=== PATIENT | male | born 1980 | race Caucasian/White ===

== ENCOUNTER 2024-04-11 10:40 | Emergency (ER) | payer MEDICAID ==
[~2024-04-11] VITALS: Ht 160 cm; Wt 70.3 kg
[2024-04-11] MEDS ORDERED: CLINDAMYCIN 600 MG in D5W 50 ML IV ONE (11:00)
[2024-04-11 11:08] VITALS: BP_SYST 153; PULSE 106; RESP 17; TEMP 97.5; O2SAT 98
[2024-04-11 11:36] LABS: BASOPHILS % (AUTO) 0.3 % (0.0-2.0); EOSINOPHILS # (AUTO) 0.2 K/uL (0.0-0.4); EOSINOPHILS % (AUTO) 1.7 % (0.0-4.0); HEMATOCRIT 48.2 % (36-54); HEMOGLOBIN 16.7 g/dL (14.0-18.0); LYMPHOCYTES # (AUTO) 2.4 K/uL (1.0-5.5); LYMPHOCYTES % (AUTO) 22.6 % (20.5-51.5); MEAN CORPUSCULAR HEMOGLOBIN 33 pg (27-31); MEAN CORPUSCULAR HGB CONC 35 % (32-36); MEAN CORPUSCULAR VOLUME 94 fL (79.0-98.0); MONOCYTES % (AUTO) 9.3 % (1.7-9.3); NEUTROPHILS # (AUTO) 6.9 K/uL (1.8-7.7); NEUTROPHILS % (AUTO) 66.1 % (40.0-70.0); PLATELET COUNT (AUTO) 224 K/uL (130-430); RED BLOOD CELL COUNT(AUTO) 5.12 MIL/uL (4.2-6.2); RED CELL DISTRIBUTION WIDTH 13.1 % (9.0-15.0); WHITE BLOOD COUNT (AUTO) 10.5 K/uL (4.8-10.8)
[2024-04-11] MEDS: CLINDAMYCIN HCL 150 MG CAPSULE PO ONE (11:47)
[2024-04-11 11:55] LABS: INR 1.1 (0.80-1.20); PROTHROMBIN TIME 11.5 SECS (9.5-12.5)
[2024-04-11 12:24] LABS: CALCIUM 8.4 mg/dL (8.4-11.0); CREATININE 1.03 mg/dL (0.55-1.30); POTASSIUM 3.8 mmol/L (3.5-5.1)
[2024-04-11] MEDS ORDERED: CLIN-142 PO (12:39)
[2024-04-11 12:50] VITALS: BP_SYST 153; PULSE 106; RESP 17; TEMP 97.5; O2SAT 98
== END 2024-04-11 12:51 | disposition home or self-care (01) ==
LOC: SED 10:40
DX: L03.211 Cellulitis of face (principal)
CPT/HCPCS: 36415; 70486; 80048; 83605; 85025; 85610; 85730; 87040; 99284

== ENCOUNTER 2024-06-20 14:58 | Emergency (ER) | payer MEDICAID ==
[~2024-06-20] VITALS: Ht 160 cm; Wt 72.6 kg
[~2024-06-20 14:58] MED LIST: CLIN-142 PO
[2024-06-20 15:03] VITALS: BP_SYST 123; PULSE 109; RESP 18; TEMP 97.2; O2SAT 95
[2024-06-20] MEDS: NS 1000 ML IV.SOLN IV ONE (15:37)
[2024-06-20 15:46] LABS: RED CELL DISTRIBUTION WIDTH 13.3 % (9.0-15.0)
[2024-06-20] MEDS: CLINDAMYCIN 900 mg/50mL D5W 50 ML IV ONE (15:46)
[2024-06-20 15:54] LABS: BASOPHILS # (AUTO) 0.1 K/uL (0.0-0.2); BASOPHILS % (AUTO) 0.7 % (0.0-2.0); EOSINOPHILS # (AUTO) 0.2 K/uL (0.0-0.4); EOSINOPHILS % (AUTO) 1.8 % (0.0-4.0); HEMATOCRIT 49.9 % (36-54); HEMOGLOBIN 17.2 g/dL (14.0-18.0); LYMPHOCYTES # (AUTO) 2.3 K/uL (1.0-5.5); LYMPHOCYTES % (AUTO) 21.6 % (20.5-51.5); MEAN CORPUSCULAR HEMOGLOBIN 32 pg (27-31); MEAN CORPUSCULAR HGB CONC 35 % (32-36); MEAN CORPUSCULAR VOLUME 94 fL (79.0-98.0); MONOCYTES % (AUTO) 9.3 % (1.7-9.3); NEUTROPHILS % (AUTO) 66.6 % (40.0-70.0); PLATELET COUNT (AUTO) 245 K/uL (130-430); RED BLOOD CELL COUNT(AUTO) 5.32 MIL/uL (4.2-6.2); WHITE BLOOD COUNT (AUTO) 10.5 K/uL (4.8-10.8)
[2024-06-20 15:58] LABS: ALBUMIN 3.6 g/dL (3.4-4.8); BILIRUBIN,DIRECT 0.2 mg/dL (0.0-0.3); CALCIUM 8.6 mg/dL (8.4-11.0); CREATININE 0.89 mg/dL (0.55-1.30); POTASSIUM 3.6 mmol/L (3.5-5.1); TOTAL BILIRUBIN 0.9 mg/dL (0.0-1.0)
[2024-06-20] MEDS ORDERED: CLIN-142 PO (16:20)
[2024-06-20 17:02] VITALS: BP_SYST 123; PULSE 109; RESP 18; TEMP 97.2; O2SAT 95
== END 2024-06-20 17:04 | disposition home or self-care (01) ==
LOC: SED 14:58
DX: K04.7 Periapical abscess without sinus (principal); H92.02 Otalgia, left ear; R22.0 Localized swelling, mass and lump, head; Z79.2 Long term (current) use of antibiotics
CPT/HCPCS: 99284; 96365; 80076; 80048; 85025; 87040; 36415; 83605; J3490